=== PATIENT | female | born 1950 | race Caucasian/White ===

== ENCOUNTER → 2019-01-12 | Outpatient (CLI) | payer BC ==
[2019-01-12 14:29] LABS: BASO # 0.1 x10^3/uL (0.0-0.2); BASO % 1 % (0-3); EOS # 0.1 x10^3/uL (0.0-0.7); EOS % 1 % (0-3); HEMOGLOBIN 14.6 g/dL (12.0-15.5); LYMPH # 2.2 x10^3/uL (1.0-4.8); LYMPH % 38 % (24-48); MEAN CORPUSCULAR HEMOGLOBIN 33 pg (25-35); MEAN CORPUSCULAR HGB CONC 34 g/dL (31-37); MEAN CORPUSCULAR VOLUME 97 fL (79-100); MONO # 0.6 x10^3/uL (0.0-1.1); MONO % 10 % (0-9); NEUT # 2.9 x10^3uL (1.8-7.7); NEUT % 50 % (31-73); PLATELET COUNT 304 x10^3/uL (140-400); RED BLOOD COUNT 4.45 x10^6/uL (3.50-5.40); RED CELL DISTRIBUTION WIDTH 12.9 % (11.5-14.5); WHITE BLOOD COUNT 5.8 x10^3/uL (4.0-11.0)
[2019-01-12 14:45] LABS: CALCIUM 9.6 mg/dL (8.5-10.1); CREATININE 0.9 mg/dL (0.6-1.0); GFR 62.3; POTASSIUM 4.2 mmol/L (3.5-5.1)
[2019-01-12 14:50] LABS: ALBUMIN 3.8 g/dL (3.4-5.0); ALBUMIN/GLOBULIN RATIO 1.3 (1.0-1.7); PHOSPHORUS 2.8 mg/dL (2.6-4.7); TOTAL BILIRUBIN 0.4 mg/dL (0.2-1.0); TOTAL PROTEIN 6.8 g/dL (6.4-8.2)
[2019-01-13 15:13] LABS: URINE OSMOLALITY 778 mOsmol/kg (.)
== END | disposition home or self-care (01) ==
LOC: LAB 13:59
PROVIDERS: ATTEND Family Medicine
DX: E22.2 Syndrome of inappropriate secretion of antidiuretic hormone (principal); I67.83 Posterior reversible encephalopathy syndrome
CPT/HCPCS: 36415; 80053; 83735; 83880; 83935; 84100; 84300; 85025

== ENCOUNTER → 2019-04-03 | Outpatient (CLI) | payer BC ==
--- NOTE | 2019-04-03 12:10 | KCIC ---
Bilateral digital screening mammograms with 3-D tomosynthesis: Reason for examination: Routine screening. Comparison is made to previous studies dated 06/27/2016 and 05/13/2015. Bilateral mammograms in CC and oblique projections were obtained with 2-D imaging and 3-D tomosynthesis imaging on a Siemens Inspiration unit and reviewed on the workstation. Interpretation was made with the benefit of CAD. The skin and nipples show no abnormalities. No abnormal axillary lymph nodes are seen. The breast parenchyma shows scattered fatty and fibroglandular density. (Breast density: Category B.) There are no dominant masses, suspicious calcifications or architectural distortion. Impression: No evidence of malignancy. Recommend routine screening. BI-RAD Category 1: Negative. "Our facility is accredited by the [employer] Mammography Program." This patient's information has been entered into a reminder system for the patient to be notified with the results of her examination and a target date for the next mammogram. Electronically signed by: Erica Edward MD (04/03/2019 12:07 PM) [id number]
--- NOTE | 2019-04-03 15:03 | KCIC ---
Bone densitometry 04/03/2019 10:30 AM Indication: Osteopenia. History of chemotherapy Comparison Study: None. Discussion: Bone Densitometry was performed with dual photon absorption of the lumbar spine and left proximal femur. Lumbar Spine: Bone average density is 0.844g/cm2 for L1-L4. T-Score is -1.8. Left proximal femur: Bone average density is 0.738 g/cm2. T-Score is -1.7. IMPRESSION: Osteopenia. Note: Definitions established by the World Health Organization: Normal: T-score is -1.0 or above. Osteopenia: T-score is between -1.0 and -2.5. Osteoporosis: T-score is -2.5 or below. Electronically signed by: Anthony Horn MD (04/03/2019 3:00 PM) [id number]
== END | disposition home or self-care (01) ==
LOC: KCIC DEXA 10:40
PROVIDERS: ATTEND Family Medicine
DX: Z12.31 Encounter for screening mammogram for malignant neoplasm of breast (principal); N64.89 Other specified disorders of breast; M85.88 Other specified disorders of bone density and structure, other site; Z92.21 Personal history of antineoplastic chemotherapy
CPT/HCPCS: 77063; 77067; 77080

== ENCOUNTER → 2019-06-01 | Outpatient (CLI) | payer BC ==
--- NOTE | 2019-06-01 15:42 | KCIC ---
MR of the right hip HISTORY: Right hip pain and weakness over the greater trochanter. TECHNIQUE: Routine multiplanar sequences are obtained. FINDINGS: No evidence of acute fracture, aggressive bone destruction, marrow edema or femoral head osteonecrosis. No significant joint effusion. No evidence of labral tear. No advanced DJD. Minimal signal and ill-definition of the left gluteus minimus tendon insertion. Gluteus medius tendon intact. Hamstring tendon intact. Iliopsoas tendon attachment intact. Rectus femoris and sartorius tendon attachments are intact. Large [id number] coronal survey sequence demonstrates no acute findings at the contralateral hip or elsewhere in the [id number]. IMPRESSION: Minimal left gluteus minimus tendinosis. Electronically signed by: Chepe Esteves MD (06/01/2019 3:39 PM) [id number]
== END | disposition home or self-care (01) ==
LOC: KCIC MRI 13:47
PROVIDERS: ATTEND Orthopaedic Surgery
DX: M76.02 Gluteal tendinitis, left hip (principal)
CPT/HCPCS: 73721